=== PATIENT | female | born 1970 | race Hispanic/Latino ===

== ENCOUNTER → 2020-10-18 | Outpatient (CLI) | payer MEDICARE ==
[~2020-10-18] MED LIST: ASPI-1197 PO; CHOL500050 PO; FENO145T26 PO; FISH1CAP27 PO; HYDR-4060 PO; NAPR-1023 PO; ROSU10TA22 PO
== END | disposition home or self-care (01) ==
LOC: OIH 07:56
PROVIDERS: ATTEND Internal Medicine
DX: M19.91 Primary osteoarthritis, unspecified site (principal)
CPT/HCPCS: 72100; 72202

== ENCOUNTER → 2024-02-22 | Outpatient (CLI) | payer OTHER | END | disposition home or self-care (01) | LOC: RAH 11:29 | PROVIDERS: ATTEND Anesthesiology Pain Medicine | DX: M47.814 Spondylosis without myelopathy or radiculopathy, thoracic region (principal); M54.89 Other dorsalgia | CPT/HCPCS: 72072 ==